=== PATIENT | female | born 1990 | race American Indian/Alaskan Native ===

== ENCOUNTER 2017-09-04 22:32 | Emergency (ER) | payer MEDICAID ==
[2017-09-04 23:37] VITALS: BP 105/73
--- NOTE | 2017-09-05 00:46 | Emergency Department Report ---
ED Female HPI - General Chief complaint: Urogenital-Female Stated complaint: STD CHECK Time Seen by Provider: 09/05/17 00:44 Source: patient Mode of arrival: Ambulatory Limitations: No Limitations - History of Present Illness Initial comments: This is a 26-year-old female who presents to ED complaining of vaginal order 4 days. Patient states last menstrual period was 08/24/1999 810 and lasted 3 days. Patient states she was concerned when she started to have a different vaginal odor. She denies dysuria, fever, vaginal discharge, itching or any other problems and would like to be tested for STDs. - Related Data Allergies Allergy/AdvReac Type Severity Reaction Status Date / Time No Known Allergies Allergy Unverified 09/04/17 23:34 ED Review of Systems ROS: Stated complaint: STD CHECK Other details as noted in HPI Constitutional: denies: chills, fever Eyes: denies: eye pain, eye discharge, vision change ENT: denies: ear pain, throat pain Respiratory: denies: cough, shortness of breath, wheezing Cardiovascular: denies: chest pain, palpitations Endocrine: no symptoms reported Gastrointestinal: denies: abdominal pain, nausea, diarrhea Genitourinary: denies: urgency, dysuria, discharge Musculoskeletal: denies: back pain, joint swelling, arthralgia Skin: denies: rash, lesions Neurological: denies: headache, weakness, paresthesias Psychiatric: denies: anxiety, depression Hematological/Lymphatic: denies: easy bleeding, easy bruising ED Past Medical Hx - Past Medical History Previous Medical History?: No - Surgical History Past Surgical History?: No - Social History Smoking Status: Current Every Day Smoker Substance Use Type: Alcohol, Marijuana ED Physical Exam - General Limitations: No Limitations General appearance: alert, in no apparent distress - Head Head exam: Present: atraumatic, normocephalic - Eye Eye exam: Present: normal appearance - ENT ENT exam: Present: mucous membranes moist - Neck Neck exam: Present: normal inspection - Respiratory Respiratory exam: Present: normal lung sounds bilaterally. Absent: respiratory distress - Cardiovascular Cardiovascular Exam: Present: regular rate, normal rhythm. Absent: systolic murmur, diastolic murmur, rubs, gallop - GI/Abdominal GI/Abdominal exam: Present: soft, normal bowel sounds. Absent: distended, tenderness, guarding - Rectal Rectal exam: Present: normal inspection - External exam: Present: normal external exam. Absent: erythema, swelling, lesions Speculum exam: Present: normal speculum exam. Absent: erythema, vaginal discharge, cervical discharge, vaginal bleeding Bi-manual exam: Present: normal bi-manual exam. Absent: cervical motion tendernes, adnexal tenderness, uterine tenderness - Extremities Exam Extremities exam: Present: normal inspection, full ROM - Back Exam Back exam: Present: normal inspection, full ROM - Neurological Exam Neurological exam: Present: alert, oriented X3 - Psychiatric Psychiatric exam: Present: normal affect, normal mood - Skin Skin exam: Present: warm, dry, intact, normal color. Absent: rash ED Course Vital Signs 09/04/17 09/04/17 23:27 23:37 Temperature 98.6 F 98.6 F Pulse Rate 66 Respiratory 16 18 Rate Blood Pressure 105/73 Blood Pressure 105/73 [Left] O2 Sat by Pulse 98 Oximetry ED Medical Decision Making - Lab Data Laboratory Last Values Urine Color Yellow (Yellow) 09/04/17 Unknown Urine Turbidity Clear (Clear) 09/04/17 Unknown Urine pH 6.0 (5.0-7.0) 09/04/17 Unknown Ur Specific [place] 1.020 (1.003-1.030) 09/04/17 Unknown Urine Protein 30 mg/dl mg/dL (Negative) 09/04/17 Unknown Urine Glucose (UA) Neg mg/dL (Negative) 09/04/17 Unknown Urine Ketones Neg mg/dL (Negative) 09/04/17 Unknown Urine Blood Neg (Negative) 09/04/17 Unknown Urine Nitrite Neg (Negative) 09/04/17 Unknown Urine Bilirubin Neg (Negative) 09/04/17 Unknown Urine Urobilinogen < 2.0 mg/dL (<2.0) 09/04/17 Unknown Ur Leukocyte Esterase Neg (Negative) 09/04/17 Unknown Urine WBC (Auto) 1.0 /HPF (0.0-6.0) 09/04/17 Unknown Urine RBC (Auto) 2.0 /HPF (0.0-6.0) 09/04/17 Unknown U Epithel Cells (Auto) 1.0 /HPF (0-13.0) 09/04/17 Unknown Urine Mucus 1+ /HPF 09/04/17 Unknown Urine HCG, Qual Negative (Negative) 09/04/17 Unknown - Medical Decision Making 26-year-old male presents with STD screening. ED course: Wet prep collected,urinalysis and gonorrhea and Chlamydia cultures obtained. Urinalysis negative, test negative Wet prep negative. I discussed all these findings with the patient. I discussed the patient to follow-up with [employer] Discussed with patient findings and to return in 3 days for STD results Discussed prophylaxis treatment patient is to abstain from sex 7-10 days as treatment. Discussed the follow-up with the health department for further STD testing. Patient's alert and oriented times 3. Vital signs are normal patient is in no acute discharge. Patient will be discharged home with instructions. Critical care attestation.: If time is entered above; I have spent that time in minutes in the direct care of this critically ill patient, excluding procedure time. ED Disposition Clinical Impression: Screening for STD (sexually transmitted disease) Vaginitis Qualifiers: Chronicity: acute Qualified Code(s): N76.0 - Acute vaginitis Disposition: TO HOME OR SELFCARE Is pt being admited?: No Does the pt Need Aspirin: No Condition: Stable Instructions: Vaginitis (ED) Additional Instructions: Make sure to follow up with the primary care physician as discussed. Take all your medications as you've been prescribed. If you have any worsening symptoms or develop new symptoms please return to ED immediately. Referrals: REKHA PURVIS MD [Primary Care Provider] - 3-5 Days RICHY POSADAS MD [Referring] - 3-5 Days [facility] [Outside] - 3-5 Days [facility] [Outside] - 3-5 Days Forms: Work/School Release Form(ED) Time of Disposition: 02:14
[2017-09-05 00:50] LABS: Bilirubin,Urine NEG (Negative); Blood,Urine NEG (Negative); Color,Urine Yellow (Yellow); Mucus,Urine 1+ /HPF; Urobilinogen,Urine < 2.0 mg/dL (<2.0)
[2017-09-05 01:17] LABS: HCG Qualitative,Urine Negative (Negative)
== END 2017-09-05 02:22 | disposition home or self-care (01) ==
LOC: ED 22:32
DX: N76.0 Acute vaginitis (principal); F17.200 Nicotine dependence, unspecified, uncomplicated; F12.10 Cannabis abuse, uncomplicated
CPT/HCPCS: 81001; 81025; 87210; 87591

== ENCOUNTER 2017-10-19 01:15 | Emergency (ER) | payer MEDICAID ==
[2017-10-19 01:46] VITALS: BP 107/54
[2017-10-19] MEDS ORDERED: MOTRIN ONE (05:40)
[2017-10-19] MEDS ORDERED: MOTRIN PO ONE (05:43)
--- NOTE | 2017-10-19 05:43 | Emergency Department Report ---
ED Rash HPI - HPI Chief Complaint: Allergic Reaction Stated Complaint: INSECT BITE Time Seen by Provider: 10/19/17 05:16 Duration: 2 Days Location: Lower Extremities (right thigh) Suspected Cause: Insect Rash Symptoms: Yes Itching, No Facial Swelling, No Tongue/Oral Swelling, No Breathing Difficulties, No Choking Sensation, No Wheezing/Dyspnea, No Peeling, No Blistering, No Fever, No Lightheaded, No Malaise, No Myalgias Severity: moderate Other History: This is a 26-year-old -[place] female who presents with the inset bite to right thigh for 2 days. Patient reports noticing swelling in lower to right thigh 2 days ago. She has been applying warm heat to the area with some improvement of swelling. She does not recall receiving a bite but the note is bite justin swollen area. Patient reports pain is intermittent and area is warm to touch. Patient reports increased swelling and abscess forming yesterday. Denies drainage, fever, drooling, difficulty swallowing, shortness of breath, and chest pain. ED Review of Systems ROS: Stated complaint: INSECT BITE Other details as noted in HPI Constitutional: denies: chills, fever Respiratory: denies: cough, shortness of breath, wheezing Cardiovascular: denies: chest pain, palpitations Gastrointestinal: denies: abdominal pain, nausea, diarrhea Musculoskeletal: denies: back pain, joint swelling, arthralgia, myalgia Skin: lesions (abscess to the back of right thigh). denies: rash Neurological: denies: headache, weakness, paresthesias Psychiatric: denies: anxiety, depression ED Past Medical Hx - Past Medical History Previous Medical History?: No - Surgical History Past Surgical History?: No - Social History Smoking Status: Never Smoker Substance Use Type: None - Medications Home Medications: Home Medications Medication Instructions Recorded Confirmed Last Taken Type Ibuprofen 800 mg PO Q6H PRN #15 tablet 10/19/17 Unknown Rx Sulfamethoxazole/Trimethoprim 1 each PO BID 7 Days #14 tablet 10/19/17 Unknown Rx [Bactrim DS TAB] Rash Exam - Exam General: Vital signs noted. No distress. Alert and acting appropriately. HEENT: No Periorbital Edema, No Conjuctival Injection, No Chemosis, No Perioral Edema, No Tongue Edema, No Uvular Edema, No Compromised Airway, No Drooling Lungs: Yes Good Air Exchange (Normal Breath Sounds), No Wheezes, No Ronchi, No Stridor, No Cough, No Labored Respirations, No Retractions, No Use of Accessory Muscles, No Other Abnormal Lung Sounds Heart: Yes Regular, No Murmur Skin: Yes Bulla(e) (3 cm erythematous nodule to posterior thigh medial, tenderness, warmth, no drainage), Yes Tenderness, Yes Erythema, No Urticarial Rash, No Maculopapular Rash, No Morbilliform rash, No Excoriations, No Weeping, No Edema, No Encrustations Other: Positive: Abdomen Normal, Neurologic Normal, Musculoskeletal Normal ED Course Vital Signs 10/19/17 01:42 Temperature 98.7 F Pulse Rate 71 Blood Pressure 107/54 O2 Sat by Pulse 99 Oximetry ED Medical Decision Making - Medical Decision Making This is a 26y.o. female with a painful abscess to posterior right thigh for 2 days. No history of prior abscess. Patient is stable and examined by me. Physical assessment of 2 cm erythematous nodule to right posterior thigh. No acute signs of distress noted. Given ibuprofen 800 mg po once in ER. Wound is not ready for I&D. Discussed plan to start Bactrim DS and ibuprofen with parents. Educated patient on follow up plan for wound to be reassessed in 2-3 days. Patient agrees to ED plan of care. Discharged home and follow up with PCP in 2-3 days. Critical care attestation.: If time is entered above; I have spent that time in minutes in the direct care of this critically ill patient, excluding procedure time. ED Disposition Clinical Impression: Abscess Insect bite Qualifiers: Encounter type: initial encounter Qualified Code(s): W57.XXXA - Bitten or stung by nonvenomous insect and other nonvenomous arthropods, initial encounter Disposition: -01 TO HOME OR SELFCARE Is pt being admited?: No Does the pt Need Aspirin: No Condition: Stable Instructions: Abscess (ED), Insect Bite or Sting (ED) Additional Instructions: Complete full round of Augmentin antibiotic as prescribed. Follow up with primary care provider in 2-3 days. Return to ER if foul smelling discharge, swelling, or severe pain to wound. Prescriptions: Ibuprofen 800 mg PO Q6H PRN #15 tablet PRN Reason: Pain Sulfamethoxazole/Trimethoprim [Bactrim DS TAB] 1 each PO BID 7 Days #14 tablet Referrals: [facility] [Outside] - 3-5 Days [facility] [Outside] - 3-5 Days [facility] [Outside] - 3-5 Days Time of Disposition: 06:38 Print Language: LAO
== END 2017-10-19 06:49 | disposition home or self-care (01) ==
LOC: ED 01:15
DX: S70.361A Insect bite (nonvenomous), right thigh, initial encounter (principal); L02.415 Cutaneous abscess of right lower limb; W57.XXXA Bitten or stung by nonvenomous insect and other nonvenomous arthropods, initial encounter; Y93.89 Activity, other specified; Y92.89 Other specified places as the place of occurrence of the external cause; Y99.8 Other external cause status
CPT/HCPCS: 99282

== ENCOUNTER 2018-07-02 21:42 | Emergency (ER) | payer MEDICAID ==
[2018-07-02 23:00] LABS: Basophils % (Auto) 0.4 % (0.0-1.8); Eosinophils # (Auto) 0.1 K/mm3 (0.0-0.4); Eosinophils % (Auto) 0.8 % (0.0-4.3); Hematocrit 39.5 % (30.3-42.9); Hemoglobin 13.6 gm/dl (10.1-14.3); Lymphocytes # (Auto) 2.3 K/mm3 (1.2-5.4); Mean Corpuscular HGB Conc 35 % (30-34); Mean Corpuscular Volume 106 fl (79-97); Monocytes # (Auto) 0.4 K/mm3 (0.0-0.8); Monocytes % (Auto) 5.6 % (0.0-7.3); Platelet Count 148 K/mm3 (140-440); Red Blood Count 3.72 M/mm3 (3.65-5.03); Red Cell Distribution Width 12.6 % (13.2-15.2)
[2018-07-02 23:01] LABS: Bacteria,Urine 1+ /HPF (Negative); Bilirubin,Urine NEG (Negative); Blood,Urine LG (Negative); Color,Urine Amber (Yellow); Mucus,Urine 3+ /HPF; Urobilinogen,Urine < 2.0 mg/dL (<2.0)
--- NOTE | 2018-07-03 07:53 | Ultrasound Report ---
FINAL REPORT PROCEDURE: US PELVIC COMPLETE TECHNIQUE: Real-time transabdominal sonography in multiple planes of the pelvis was performed. The p elvic structures, especially the ovaries were not optimally visualized. Transvaginal sonography was t hen performed to better evaluate the structures and/or abnormalities described below with image docum [place]ation. [place] [address] [place] [address] HISTORY: vaginal bleeding COMPARISON: No prior studies are available for comparison. FINDINGS: UTERUS Size: 9.2 x 3.9 x 5.3 cm. Endometrial thickness: 6.7 mm. Orientation: anteverted. Cervix: Normal. Fibroids/masses: None. RIGHT Ovary: 3.1 x 2.1 x 2.2 cm. Appearance: There is a 1 centimeter cyst. There is normal color Doppler signal. There is no specific evidence of torsion.. LEFT Ovary: 3.7 x 2.3 x 2.9 cm. Appearance: There is a 12 millimeter cyst. There is normal color Doppler signal. There is no specific evidence of torsion.. Pelvic fluid: None. Other: None. IMPRESSION: Normal Examination
--- NOTE | 2018-07-03 07:54 | Ultrasound Report ---
FINAL REPORT PROCEDURE: US PELVIC transvaginal TECHNIQUE: Real-time transvaginal sonography in multiple planes of the pelvis was performed. The pel bin structures, especially the ovaries were not optimally visualized. Transvaginal sonography was the n performed to better evaluate the structures and/or abnormalities described below with image documen tation. HISTORY: vaginal bleeding COMPARISON: No prior studies are available for comparison. FINDINGS: UTERUS Size: 9.2 x 3.9 x 5.3 cm. Endometrial thickness: 6.7 mm. Orientation: anteverted. Cervix: Normal. Fibroids/masses: None. RIGHT Ovary: 3.1 x 2.1 x 2.2 cm. Appearance: There is a 1 centimeter cyst. There is normal color Doppler signal. There is no specific evidence of torsion.. LEFT Ovary: 3.7 x 2.3 x 2.9 cm. Appearance: There is a 12 millimeter cyst. There is normal color Doppler signal. There is no specific evidence of torsion.. Pelvic fluid: None. Other: None. IMPRESSION: Normal Examination
[2018-07-03 08:05] VITALS: BP 107/67
== END 2018-07-03 08:45 | disposition home or self-care (01) ==
LOC: ED 21:42
DX: N93.9 Abnormal uterine and vaginal bleeding, unspecified (principal); Z53.21 Procedure and treatment not carried out due to patient leaving prior to being seen by health care provider
CPT/HCPCS: 36415; 76830; 76856; 81001; 84703; 85025; 99284